=== PATIENT | female | born 1950 | race Caucasian/White ===

== ENCOUNTER 2021-06-04 16:01 | Emergency (ER) | payer OTHER ==
[~2021-06-04] VITALS: Ht 160 cm; Wt 71.2 kg
[2021-06-04] MEDS ORDERED: HYZAAR 50-12.51 EACH (16:12)
[2021-06-04] MEDS ORDERED: RAYOS5 MG PO (16:12)
== END 2021-06-04 19:10 | disposition home or self-care (01) ==
LOC: ER 16:01
DX: L50.9 Urticaria, unspecified (principal); Z88.0 Allergy status to penicillin